=== PATIENT | female | born 1995 | race African-American/Black ===

== ENCOUNTER 2023-05-17 10:15 | Emergency (ER) | payer SELFPAY ==
[2023-05-17 10:17] VITALS: PULSE 97; RESP 16
[2023-05-17] MEDS ORDERED: ACET-2708 MT (16:44)
[2023-05-17] MEDS ORDERED: CYCL10TA21 MT (16:44)
== END 2023-05-17 11:40 | disposition left against medical advice (07) ==
LOC: ER 10:15
DX: Z04.1 Encounter for examination and observation following transport accident (principal); Z53.21 Procedure and treatment not carried out due to patient leaving prior to being seen by health care provider
CPT/HCPCS: 99281

== ENCOUNTER 2023-05-17 14:31 | Emergency (ER) | payer OTHER ==
[~2023-05-17] VITALS: Ht 149.9 cm; Wt 69.0 kg
[2023-05-17 15:19] VITALS: TEMP 98; O2SAT 100
[2023-05-17] MEDS: KETOROLAC 60MG/2ML VIAL IM STA (15:38)
[2023-05-17] MEDS ORDERED: ACET-2708 MT (16:44)
[2023-05-17] MEDS ORDERED: CYCL10TA21 MT (16:44)
[2023-05-17 17:15] VITALS: BP 153/75; PULSE 89; RESP 16
[2023-05-17] MEDS: KETOROLAC 60MG/2ML VIAL IM SCH (17:15)
== END 2023-05-17 17:37 | disposition home or self-care (01) ==
LOC: ER 14:31
DX: M54.50 Low back pain, unspecified (principal); V98.8XXA Other specified transport accidents, initial encounter; Y93.89 Activity, other specified; Y92.89 Other specified places as the place of occurrence of the external cause; Y99.8 Other external cause status
CPT/HCPCS: 99283; 81025; 72100; 96372; J1885